=== PATIENT | female | born 1935 | race Caucasian/White ===

== ENCOUNTER → 2017-01-05 | Outpatient (CLI) | payer OTHER, MEDICARE | LOC: BMCIMAGING 09:07 | DX: Z12.31 Encounter for screening mammogram for malignant neoplasm of breast (principal) | CPT/HCPCS: G0202 ==

== ENCOUNTER 2017-01-09 07:15 | Inpatient (IN) | payer OTHER, MEDICARE ==
[2017-01-12] MEDS ORDERED: LIDOCAINE 1% 2 ML INJ ONE (06:26)
[2017-01-12] MEDS ORDERED: CHLORHEXIDINE GLUC HIBICLENS 118 ML BTL TP ONE (06:30)
[2017-01-12] MEDS ORDERED: ROPI/epiNEPH/KETOROLAC JOINT COCKTAIL IU ONE (06:30)
[2017-01-12] MEDS ORDERED: DEXAMETHASONE 4 MG/ML VIAL IVP ONE (06:30)
[2017-01-12] MEDS ORDERED: FAMOTIDINE 20 MG TAB PO ONE (06:30)
[2017-01-12] MEDS ORDERED: ACETAMINOPHEN 325 MG TAB PO ONE (06:30)
[2017-01-12] MEDS ORDERED: CEFAZOLIN 2 GM/DEXTR 100 ML IV ONE (06:30)
[2017-01-12] MEDS ORDERED: SKIN ADHESIVE (DERMABOND) 1 EACH TP ONE (06:35)
[2017-01-12] MEDS ORDERED: ceFAZolin 1 GM/5 ML SYR ONE (06:35)
[2017-01-12] MEDS ORDERED: LIDOCAINE 1% 5 ML SDV ID PRN (06:47)
[2017-01-12] MEDS ORDERED: LR 1,000 ML IV ONE (06:47)
[2017-01-12] MEDS ORDERED: THROMBIN (RECOMBINANT) 5,000 UNIT VIAL TP ONE (07:03)
[2017-01-12] MEDS ORDERED: CALCIUM CHLORIDE 1 GM/10 ML INJ ONE (07:04)
[2017-01-12] MEDS ORDERED: PROPOFOL/EMULSION 500 MG/50 ML BOTTLE IV ONE ×2 (07:18→08:17)
[2017-01-12] MEDS ORDERED: clonIDINE 1 MG/10 ML VIAL EP ONE (07:54)
[2017-01-12] MEDS ORDERED: ROPIVACAINE HCL 150 MG/30 ML INJ ONE (07:55)
[2017-01-12] MEDS ORDERED: FAMOTIDINE 20 MG TAB PO PRN (09:56)
[2017-01-12] MEDS ORDERED: MAGNESIUM HYDROXIDE 30 ML UDCUP PO PRN (09:56)
[2017-01-12] MEDS ORDERED: POLYETHYLENE GLYCOL 3350 17 GM PKT PO PRN (09:56)
[2017-01-12] MEDS ORDERED: diphenhydrAMINE 25 MG CAP PO PRN (09:56)
[2017-01-12] MEDS ORDERED: PHARMACY PAIN CONSULT 1 EA MISC PRN (09:56)
[2017-01-12] MEDS ORDERED: ONDANSETRON DISINTEGRATING 4 MG TAB PO PRN (09:56)
[2017-01-12] MEDS ORDERED: LACTULOSE 20 GM/30 ML UDCUP PO PRN (09:56)
[2017-01-12] MEDS ORDERED: PROMETHAZINE HCL 25 MG SUPPR PR PRN (09:56)
[2017-01-12] MEDS ORDERED: oxyCODONE IR 5 MG TAB PO PRN (09:56)
[2017-01-12] MEDS ORDERED: DIPHENOXYLATE/ATROPINE LOMOTIL 1 TAB PO PRN (09:56)
[2017-01-12] MEDS ORDERED: METOCLOPRAMIDE 10 MG/2 ML VIAL IVP PRN (09:56)
[2017-01-12] MEDS ORDERED: ONDANSETRON 4 MG/2 ML VIAL IVP PRN (09:56)
[2017-01-12] MEDS ORDERED: BISACODYL 10 MG SUPP PR PRN (09:56)
[2017-01-12] MEDS ORDERED: LR 1,000 ML IV SCH (10:00)
--- NOTE | 2017-01-12 10:03 | POSTOPPROG ---
Post Op Note Date of Operation: 01/12/17 Surgeon: Guerline Gee Natural Developer: Shaniqua Hernandez PA-C Anesthesiologist: Dr. Zelaya Anesthesia: Spinal Pre-op Diagnosis: left knee osteoarthritis Post-op Diagnosis: left knee osteoarthritis Indication: severe arthritis, pain Procedure: left TKA Inf/Abcess present in the surg proc area at time of surgery?: No EBL: 50-100 Complications: none
--- NOTE | 2017-01-12 10:05 | SOAPPROG ---
SOAP Progress Note Assessment/Plan: Assessment/Plan: 81y/o female s/p left TKA - stable and doing well - meds as ordered - start Eloquis tomorrow - PT/OT - post-op antibiotics as ordered - xrays pending - call with issues or concerns 01/12/17 10:03 Subjective: No pain, feeling well Objective: NAD, no distress EOMi, face symmetric alert, appropriate MAEx4 incision clean, dressed ICD10 Worksheet Patient Problems: Problems Problem Status Onset Chronic Disease Mgmt/Transitional Care Acute Afib Acute CAD (coronary artery disease) Acute CHF (congestive heart failure) Acute
[2017-01-12] MEDS ORDERED: fentaNYL 100 MCG/2 ML INJ ONE (10:28)
[2017-01-12] MEDS: ACETAMINOPHEN 325 MG TAB PO SCH ×2 (11:28→17:55)
[2017-01-12] MEDS: ceFAZolin 2 GM/DEXTROSE 100 ML IV SCH ×2 (14:22→21:28)
--- NOTE | 2017-01-12 17:15 | GOP ---
[f rep st] OPERATIVE REPORT DATE OF OPERATION: 01/12/2017 SURGEON: Guerline Gee MD SENIOR ENLISTED ADVISOR: Shaniqua Hernandez, PAC. ANESTHESIA: Spinal with sedation and adductor canal block. PREOPERATIVE DIAGNOSIS: Severe osteoarthritis, left knee. POSTOPERATIVE DIAGNOSIS: Severe osteoarthritis, left knee. PROCEDURE PERFORMED: Left total knee arthroplasty. FINDINGS: Preoperative x-rays of the patient's left knee demonstrated severe osteoarthritis. At th e time of surgery, this finding was confirmed. The patient had complete loss of the articular carti malina in the medial and patellofemoral compartments. There was moderate loss in the lateral compartm ent. A cemented Colin and Nephew Journey II total knee arthroplasty was performed. A size 5 crucia te stabilized Oxinium-coated Journey II component was cemented into place on the femur and a size 4 tibial base plate was used on the tibial side. A 12 mm thick cross-linked polyethylene insert was p laced in the metal backing of the tibia. A 38 mm round patellar component was utilized as well. Th is was also cemented. Following implantation of the components, the patient achieved full extension and 130 degrees of flexion. She had good stability in varus and valgus stressing both in extension and flexion. ESTIMATED BLOOD LOSS: Minimal. DESCRIPTION OF PROCEDURE: The patient was taken to the operating room and placed in supine position on the operating table. Following placement of a spinal block and sedation, the knee and leg were prepped and draped in the usual sterile manner. The patient received 2 g of IV Ancef. The leg was elevated and exsanguinated and the tourniquet inflated to 275 mmHg. A midline incision was made ext ending from 2 fingerbreadths above the superior pole of the patella distally to the tibial tubercle. Incision was carried down through the subcutaneous tissue to the retinaculum of the knee. A media l parapatellar arthrotomy was performed and the patella was everted laterally. The thickness of the patella was measured and then a 9 mm cut was taken from the patella. The cut surface was protected with a metal plate and the patella was placed in the lateral gutter. The distal femoral drill was then utilized and the intramedullary guide was inserted in the distal femur with the distal femoral cutting guide. This was positioned and pinned and then a +2 cut was taken from the distal femur. Next, the femur was sized and a size 5 cutting block was chosen. It was placed on the distal femur and the anterior, posterior, and chamfer cuts were made. The 5 trial was placed on the distal femur and an excellent fit was noted. The notch was then cleared with the reamer followed by the box ost eotome. The trial component was removed and our attention was turned to the tibia. The tibia was r etracted anteriorly and again intramedullary referencing was utilized. A drill hole was placed in t he area of the tibial spines and then the intramedullary guide was inserted and the tibial cutting j ig was positioned and pinned. The tibial cut was made. The tibia was sized and the size 4 componen t was pinned into place. A trial reduction was performed and a good fit was noted with both the 11 and 12 mm thick polyethylenes. The patella was also prepared. It was drilled and a trial reduction was performed. All the trial components were then removed and the bony surfaces were thoroughly ir rigated and dried and the cement was mixed. The tibial component was then cemented into place, foll owed by the femoral component and the patellar component. The pressure was held on the components w hile the cement hardened. All excess cement was removed from around the edges of the components. T he knee was thoroughly irrigated and then the trial polyethylene was removed and the posterior capsu le was injected with joint cocktail. The 12 mm thick polyethylene was opened and inserted. Again, the wound was irrigated and then the retinaculum of the knee was closed using #2 FiberWire in a figu re-of-eight fashion. The subcutaneous tissues were closed using 2-0 Vicryl and the skin was closed using primo. Platelet gel was used in the deep and superficial portions of the wound to enhance w ound healing. The remainder of the joint cocktail was injected into the extensor mechanism. Steril e dressings and an Tank wrap were applied. The patient tolerated the procedure well and there were n o complications. Estimated blood loss minimal. Final sponge and needle counts were correct. Vincent horn was transported to the recovery room in good condition. /[id number]/MODL
[2017-01-12] MEDS ORDERED: NON-FORMULARY NEW DRUG (Lansoprazole [Lansoprazole 15 Mg] 15 MG) PO SCH (21:00)
[2017-01-12] MEDS: DILTIAZEM CD 120 MG CAP PO SCH (21:25)
[2017-01-12] MEDS: PANTOPRAZOLE SODIUM 40 MG TAB PO SCH (21:26)
[2017-01-12] MEDS: DOCUSATE SODIUM 100 MG CAP PO SCH (21:26)
[2017-01-12] MEDS: ROSUVASTATIN CALCIUM 10 MG TAB PO SCH (21:26)
[2017-01-12] MEDS: SENNOSIDES/DOCUSATE SODIUM TAB PO SCH (21:27)
[2017-01-12] MEDS: OLMESARTAN MEDOXOMIL 20 MG TAB PO SCH (21:38)
[2017-01-13] MEDS: ACETAMINOPHEN 325 MG TAB PO SCH ×4 (01:15→17:46)
[2017-01-13 05:25] LABS: HEMATOCRIT 31.5 % (38.0-47.0); HEMOGLOBIN 10.7 g/dL (12.6-16.3)
[2017-01-13] MEDS: CALCIUM CARB W/VIT D 500 MG TAB PO SCH (08:30)
[2017-01-13] MEDS: APIXABAN 5 MG TAB PO SCH ×2 (08:30→21:56)
[2017-01-13] MEDS: CYANO/VITAMIN B12 1000 MCG TAB PO SCH (08:31)
[2017-01-13] MEDS: DILTIAZEM CD 120 MG CAP PO SCH ×2 (08:31→21:56)
[2017-01-13] MEDS: SENNOSIDES/DOCUSATE SODIUM TAB PO SCH ×2 (08:32→21:53)
[2017-01-13] MEDS ORDERED: NON-FORMULARY NEW DRUG (Olmesartan Medoxomil [Benicar] 40 MG) PO SCH (09:00)
[2017-01-13] MEDS ORDERED: CALCIUM CARB W/VIT D 500 MG TAB PO SCH (09:00)
[2017-01-13] MEDS: CYCLOBENZAPRINE 10 MG TAB PO PRN ×2 (13:15→21:54)
--- NOTE | 2017-01-13 15:11 | SOAPPROG ---
SOAP Progress Note Assessment/Plan: Assessment/Plan: 81y/o female 1 day s/p left TKA - stable and doing well - requiring very little pain medication - started Eloquis today, no need to go home with Active Care system; continue SCDs while inpatient, use BALWINDER hose at home - PT/OT - xrays show stable hardware - call with issues or concerns - plan for home tomorrow morning - return precautions discussed, patient has follow-up scheduled discussed w/Dr. Gee 01/13/17 15:03 01/13/17 15:12 Subjective: Feeling well. Minimal pain. Working with PT/OT and doing well Objective: Vital Signs Temp Pulse Resp BP Pulse Ox 36.7 C 91 18 111/68 90 L 01/13/17 11:47 01/13/17 11:47 01/13/17 11:47 01/13/17 11:47 01/13/17 11:47 Laboratory Results 01/13/17 04:59 01/12/17 01/13/17 01/14/17 05:59 05:59 05:59 Intake Total 2600 Output Total 2250 Balance 350 NAD, well appearing, no distress EOMi, face symmetric, MAEx4 left knee extension 0, flexion 90 incision CDI, no erythema or active drainage ICD10 Worksheet Patient Problems: Problems Problem Status Onset Afib Acute CAD (coronary artery disease) Acute CHF (congestive heart failure) Acute Chronic Disease Mgmt/Transitional Care Acute
--- NOTE | 2017-01-13 15:22 | PDIAF ---
- Diagnosis Diagnosis: left knee osteoarthritis Code Status: Full Code - Medication Management Discharge Medications: Medications to Continue on Transfer Calcium Carbonate/Vitamin D3 [Calcium 500-Vit D3 400 Tablet] 1 each PO DAILY [Last Taken 01/05/17] Cyanocobalamin [Vitamin B12 (*)] 1,000 mcg PO DAILY 10/27/14 [Last Taken ] Docusate Sodium [Colace 100 MG (*)] 100 mg PO HS 10/27/14 [Last Taken 01/05/17] Herbals/Supplements -Info Only 1 ea PO DAILY 10/27/14 [Last Taken 01/05/17] Lansoprazole [Lansoprazole 15 mg] 15 mg PO HS 10/27/14 [Last Taken 01/11/17] Rosuvastatin Calcium [Crestor] 10 mg PO HS 10/27/14 [Last Taken 01/11/17] Apixaban [Eliquis] 5 mg PO BID #60 tab 10/29/14 [Last Taken 01/09/17] Olmesartan Medoxomil [Benicar] 40 mg PO HS 12/08/16 [Last Taken 01/10/17] Diltiazem HCl [Cartia Xt] 120 mg PO BID 12/09/16 [Last Taken 01/12/17 05:15] Acetaminophen [Tylenol 325mg (*)] 650 mg PO Q6HRS #0 tab 01/13/17 [Last Taken Unknown] oxyCODONE IR [Oxycodone Ir (*)] 5 - 10 mg PO Q3HRS PRN #0 tab 01/13/17 [Last Taken Unknown] 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 - Orders Services needed: Home Care, Registered Nurse, Physical Therapy, Occupational Therapy Home Care Face to Face: I certify that this patient was under my care and that I had the required poal-ew-olcy encounter meeting the encounter requirements on the discharge day. My findings support the fact that the patient is homebound as defined in CMS Chapter 7 Medicare Benefits Manual 30.1.1, The condition of the patient is such that there exists a normal inability to leave home and consequently, leaving home would require a considerable and taxing effort. Oxygen: n/a Diet Recommendation: no restrictions on diet Diet Texture: Regular Texture Diet Narayan Stockings Discontinue Date: continue until further discussion at post-op visit 2 weeks from surgery Wound Care Instructions: keep incision clean and dry Sutures/Primo Site: primo to be removed at post-operative visit Activity/Weight Bearing Restrictions: weight bearing as tolerated with walker - Follow Up Care Current Providers and Referrals: Angeles Nichols MD [Primary Care Provider] -
[2017-01-13] MEDS: DOCUSATE SODIUM 100 MG CAP PO SCH (21:53)
[2017-01-13] MEDS: ROSUVASTATIN CALCIUM 10 MG TAB PO SCH (21:53)
[2017-01-13] MEDS: PANTOPRAZOLE SODIUM 40 MG TAB PO SCH (21:53)
[2017-01-13] MEDS: OLMESARTAN MEDOXOMIL 20 MG TAB PO SCH (22:44)
[2017-01-14 00:17] VITALS: TEMP 98.4; O2SAT 93
[2017-01-14] MEDS: ACETAMINOPHEN 325 MG TAB PO SCH ×2 (01:43→08:15)
[2017-01-14 05:14] LABS: HEMATOCRIT 27.5 % (38.0-47.0); HEMOGLOBIN 9.4 g/dL (12.6-16.3)
[2017-01-14 08:11] VITALS: BP 124/97; PULSE 80; RESP 18
[2017-01-14] MEDS: SENNOSIDES/DOCUSATE SODIUM TAB PO SCH (08:13)
[2017-01-14] MEDS: DILTIAZEM CD 120 MG CAP PO SCH (08:14)
[2017-01-14] MEDS: APIXABAN 5 MG TAB PO SCH (08:15)
[2017-01-14] MEDS: CALCIUM CARB W/VIT D 500 MG TAB PO SCH (08:16)
[2017-01-14] MEDS: CYANO/VITAMIN B12 1000 MCG TAB PO SCH (08:16)
--- NOTE | 2017-01-19 11:53 | GDS ---
[f rep st] DISCHARGE SUMMARY ADMISSION DIAGNOSIS: Knee osteoarthritis. DISCHARGE DIAGNOSIS: Knee osteoarthritis. HOSPITAL COURSE: The patient is an 81-year-old female who is well-known to our service for ongoing knee pain and severe osteoarthritis. After careful decision making and discussion, she elected to proceed forth with surgical interventio n in the way of a left total knee arthroplasty. Surgery was completed by Dr. Guerline Gee on January 12, 2017. The patient tolerated well without complication, and was transferred to the floor, and PACU criteria was met. She worked with Physical Therapy and Occupational Therapy and continued to make great progress. Her pain was well managed. She had normal return of bladder function. She was ambulating with a walke r and doing well. Her home Eliquis was restarted the day after surgery and typical postoperative pr otocols were taken. On January 14, 2017, she was in good and stable condition and ready for discharge home with home healt marilu. All of her questions were answered prior to discharge. FOLLOWUP: She was given strict instructions to follow up in 2 weeks or sooner with any issues or ch anges. /[id number]/MODL
== END 2017-01-14 10:07 | disposition home health service (06) | DRG 470 ==
LOC: F3N 01-12 05:54
PROVIDERS: ADMIT Orthopaedic Surgery; ATTEND Orthopaedic Surgery
PROC: 0SRD0J9 Replacement of Left Knee Joint with Synthetic Substitute, Cemented, Open Approach (ICD-10-PCS; principal; 2017-01-12 07:15)
DX: M17.12 Unilateral primary osteoarthritis, left knee (principal); I25.10 Atherosclerotic heart disease of native coronary artery without angina pectoris; I10 Essential (primary) hypertension; E78.5 Hyperlipidemia, unspecified; I48.91 Unspecified atrial fibrillation; Z79.01 Long term (current) use of anticoagulants
CPT/HCPCS: 97110-GP; 97116-GP; 97161-GP; 97165-GO; 97535-GO; C1713; G8978-GP-CJ; G8979-GP-CI; G8984-GO-CJ; G8985-GO-CI; G8987-GO-CJ; G8988-GO-CI; G8989-GO-CI; J0171; J0690; J0735; J1100; J1885; J2405; J2704; J2795; J3010

== ENCOUNTER 2017-02-28 14:26 | Observation (INO) | payer OTHER, MEDICARE ==
--- NOTE | 2017-02-28 14:46 | EDPHY ---
H & P Stated Complaint: hx afib/dizzy Time Seen by Provider: 02/28/17 14:46 - Personal History Current Tetanus/Diphtheria Vaccine: Yes Tetanus Vaccine Date: withn 5-10 years - Medical/Surgical History Hx Asthma: No Hx Chronic Respiratory Disease: No Hx Diabetes: No Hx Cardiac Disease: Yes Hx Renal Disease: No Hx Cirrhosis: No Hx Alcoholism: No Hx HIV/AIDS: No Hx Splenectomy or Spleen Trauma: No Other PMH: CAD, STENTS, AFIB. SURGERY BILATERAL HIP REPLACEMENT, RIGHT KNEE RELPLACEMENT, HTN, high cholesterol - Social History Smoking Status: Never smoked Constitutional: Initial Vital Signs Temperature (C) 36.3 C 02/28/17 14:34 Heart Rate 93 02/28/17 14:34 Respiratory Rate 20 02/28/17 14:34 Blood Pressure 169/104 H 02/28/17 14:34 O2 Sat (%) 93 02/28/17 14:34 O2 Delivery Mode Room Air O2 (L/minute) 2 Allergies/Adverse Reactions: Penicillins Allergy (Mild, Verified 02/28/17 14:31) Hives amiodarone Allergy (Verified 02/28/17 14:31) flecainide Allergy (Verified 02/28/17 14:31) propafenone HCl [From Rythmol] Allergy (Verified 02/28/17 14:31) Home Medications: Medication Instructions Recorded Calcium Carbonate/Vitamin D3 1 each PO DAILY 10/27/14 [Calcium 500-Vit D3 400 Tablet] Cyanocobalamin [Vitamin B12 (*)] 1,000 mcg PO DAILY 10/27/14 Docusate Sodium [Colace 100 MG (*)] 100 mg PO HS 10/27/14 Herbals/Supplements -Info Only 1 ea PO DAILY 10/27/14 Lansoprazole [Lansoprazole 15 mg] 15 mg PO HS 10/27/14 Rosuvastatin Calcium [Crestor] 10 mg PO HS 10/27/14 Apixaban [Eliquis] 5 mg PO BID #60 tab 10/29/14 Olmesartan Medoxomil [Benicar] 40 mg PO HS 12/08/16 Diltiazem HCl [Cartia Xt] 120 mg PO BID 12/09/16 Acetaminophen [Tylenol 325mg (*)] 650 mg PO Q6HRS #0 tab 01/13/17 oxyCODONE IR [Oxycodone Ir (*)] 5 - 10 mg PO Q3HRS PRN #0 tab 01/13/17 Medical Decision Making - Diagnostics Imaging: Discussed imaging studies w/ house calls nurse Radiologist ED Course/Re-evaluation: CHIEF COMPLAINT: Dizziness, atrial fibrillation. HISTORY OF PRESENT ILLNESS: The patient is an 81-year-old female with a history of atrial fibrillation who presents with dizziness that began yesterday and has been constant since then. The dizziness is worsened with walking. She is not dizzy when she lies in bed. She was seen at Urgent Care just prior to arrival for dizziness and was sent here when she was found to be in atrial fibrillation. She is anticoagulated on Eliquis. REVIEW OF SYSTEMS: A 10 point review of systems was performed and is negative with the exception of the elements mentioned in the history of present illness. PHYSICAL EXAM: HR, BP, O2 Sat, RR. Temp noted General Appearance: Alert, well hydrated, appropriate, and non-toxic appearing. Head: Atraumatic without scalp tenderness or obvious injury Eyes: Pupils equal, round, reactive to light and accommodation, EOMI, no trauma , no injection. Ears: Clear bilaterally, no perforation, normal landmarks Nose: Atraumatic, no rhinorrhea, clear. Throat: There is no erythema or exudates, no lesions, normal tonsils, mucus membranes moist. Neck: Supple, 2+ carotid upstroke, nontender, no lymphadenopathy. Respiratory: No retractions, no distress, no wheezes, and no accessory muscle use. Lungs are clear to auscultation bilaterally. Cardiovascular: Regular rate and rhythm, no murmurs, rubs, or gallops. Bilateral carotid, radial, dorsalis pedis, and posterior tibial pulses intact. Good capillary refill all extremities. Gastrointestinal: Abdomen is soft, nontender, non-distended, no masses, no rebound, no guarding, no peritoneal signs. Musculoskeletal: Normal active ROM of all extremities, atraumatic. Neurological: Alert, appropriate, and interactive. The patient has normal DTRs and non-focal cranial nerves, motor, sensory, and cerebellar exam. Skin: No rashes, good turgor, no nodules on palpation. Past medical history: HTN, hypercholesterolemia, atrial fibrillation. Past surgical history: Knee replacement. Family history: N/A. Social history: Here with family. DIAGNOSTICS/PROCEDURES/CRITICAL CARE TIME: Study: MRI of the: Brain. Indication: Neurologic Results: See Imaging Results section for official report. The study was read by the radiologist, Dr. Maher. I viewed the images myself on the PACS system. The 12 lead EKG was interpreted by myself. See hard copy and/or "tracemaster" electronic copy for interpretation. Rate-controlled Atrial fibrillation rate 98. DIFFERENTIAL DIAGNOSIS: The differential diagnosis for the patient's dizziness included but was not limited to peripheral and central causes of vertigo, orthostatic causes including dehydration, cardiogenic and neurogenic causes, and blood loss. MEDICAL DECISION MAKIN-year-old male with a history of atrial fibrillation presents with dizziness that began yesterday. I was notified of this patient prior to arrival by the provider at [facility]. I think benign peripheral vertigo less likely as she is not dizzy when she is in bed and moves her head around. She is only dizzy when she walks and considering her risk of blood clot with the afib I am concerned for a cerebellar process. Even with anticoagulation her risk of stroke is non-zero. We will check a brain MRI. I will give her 1mg IV Ativan as she is claustrophobic and afraid of the MRI. An IV was established and labs ordered. Lab work is unremarkable. 1909: Brain MRI results conveyed to me by Dr. Maher, radiology. He reports no acute processes. See image results section for official report. 1912: Reassessed patient. Discussed MRI results. She feels well. We will road test her prior to discharge. 1918: Patient is wobbly and ataxic while walking. She is comfortable being admitted. Hospitalist paged. 1921: Consulted with Dr. Boyle, hospitalist. He accepts admission. - Data Points Laboratory Results: Laboratory Results 02/28/17 15:06 02/28/17 15:06 02/28/17 02/28/17 15:06 15:06 WBC 5.88 10^3/uL 10^3/uL (3.80-9.50) RBC 4.10 10^6/uL L 10^6/uL (4.18-5.33) Hgb 13.0 g/dL g/dL (12.6-16.3) Hct 39.1 % % (38.0-47.0) MCV 95.4 fL fL (81.5-99.8) MCH 31.7 pg pg (27.9-34.1) MCHC 33.2 g/dL g/dL (32.4-36.7) RDW 14.9 % % (11.5-15.2) Plt Count 301 10^3/uL 10^3/uL (150-400) MPV 8.9 fL fL (8.7-11.7) Neut % (Auto) 70.4 % % (39.3-74.2) Lymph % (Auto) 17.5 % % (15.0-45.0) Bowie % (Auto) 10.4 % % (4.5-13.0) Eos % (Auto) 0.5 % L % (0.6-7.6) Baso % (Auto) 0.9 % % (0.3-1.7) Nucleat RBC Rel Count 0.0 % % (0.0-0.2) Absolute Neuts (auto) 4.14 10^3/uL 10^3/uL (1.70-6.50) Absolute Lymphs (auto) 1.03 10^3/uL 10^3/uL (1.00-3.00) Absolute Monos (auto) 0.61 10^3/uL 10^3/uL (0.30-0.80) Absolute Eos (auto) 0.03 10^3/uL 10^3/uL (0.03-0.40) Absolute Basos (auto) 0.05 10^3/uL 10^3/uL (0.02-0.10) Absolute Nucleated RBC 0.00 10^3/uL 10^3/uL (0-0.01) Immature Gran % 0.3 % % (0.0-1.1) Immature Gran # 0.02 10^3/uL 10^3/uL (0.00-0.10) Sodium 140 mEq/L mEq/L (134-144) Potassium 4.2 mEq/L mEq/L (3.5-5.2) Chloride 105 mEq/L mEq/L (97-110) Carbon Dioxide 23 mEq/l mEq/l (22-31) Anion Gap 12 mEq/L mEq/L (8-16) BUN 18 mg/dL mg/dL (7-23) Creatinine 0.8 mg/dL mg/dL (0.6-1.0) Estimated GFR > 60 Glucose 97 mg/dL mg/dL (70-100) Calcium 9.9 mg/dL mg/dL (8.5-10.4) Magnesium 2.4 mg/dL H mg/dL (1.6-2.3) Troponin I < 0.012 ng/mL ng/mL (0-0.034) NT-Pro-B Natriuret Pep 795 pg/mL H pg/mL (0-450) Medications Given: Discontinued Medications Lorazepam (Ativan Injection) 1 mg IVP EDNOW ONE Stop: 02/28/17 15:02 Last Admin: 02/28/17 17:30 Dose: 1 mg Departure - Departure Disposition: [facility] Inpatient Acute Clinical Impression: Benign positional vertigo Qualifiers: Laterality: unspecified laterality Qualified Code(s): H81.10 - Benign paroxysmal vertigo, unspecified ear Condition: Fair Referrals: Angeles Nichols MD [Primary Care Provider] - As per Instructions Deshaun Roque MD [Medical Doctor] - As per Instructions Report Scribed for: Garrick Land Report Scribed by: Carmine Arciniega Date of Report: 02/28/17 Time of Report: 14:58
--- NOTE | 2017-02-28 14:56 | CPEKG ---
Heart Rate: 98 RR Interval: 612 QRSD Interval: 88 QT Interval: 364 QTC Interval: 465 QRS [place]: -40 T Wave [place]: 100 EKG Severity - ABNORMAL ECG - EKG Impression: ATRIAL FIBRILLATION EKG Impression: LEFT AXIS DEVIATION EKG Impression: NONSPECIFIC T ABNORMALITIES, LATERAL LEADS Electronically Signed By: Garrick Land 28-Feb-2017 21:07:19
[2017-02-28] MEDS ORDERED: LORazepam 2 MG/ML INJ IVP ONE (15:01)
[2017-02-28 15:20] LABS: % IMMATURE GRANULYOCYTES 0.3 % (0.0-1.1); ABSOLUTE IMMATURE GRANULOCYTES 0.02 10^3/uL (0.00-0.10); ADD DIFF? NO; ADD MORPH? NO; ADD SCAN? NO; ATYPICAL LYMPHOCYTE FLAG 0 (0-99); FRAGMENT RBC FLAG 0 (0-99); HEMATOCRIT 39.1 % (38.0-47.0); LEFT SHIFT FLG 0 (0-99); LIPEMIA HEMOLYSIS FLAG 80 (0-99); MEAN CELL HEMOGLOBIN 31.7 pg (27.9-34.1); MEAN CELL HEMOGLOBIN CONCENTR. 33.2 g/dL (32.4-36.7); MEAN CELL VOLUME 95.4 fL (81.5-99.8); MEAN PLATELET VOLUME 8.9 fL (8.7-11.7); PLATELET CLUMPS FLAG 0 (0-99); PLATELET COUNT 301 10^3/uL (150-400); RED CELL DISTRIBUTION WIDTH 14.9 % (11.5-15.2)
[2017-02-28 15:52] LABS: ANION GAP 12 mEq/L (8-16); CALCIUM 9.9 mg/dL (8.5-10.4); CARBON DIOXIDE 23 mEq/l (22-31); CHLORIDE 105 mEq/L (97-110); CREATININE 0.8 mg/dL (0.6-1.0); GLOMERULAR FILTRATION RATE > 60; GLUCOSE 97 mg/dL (70-100); MAGNESIUM 2.4 mg/dL (1.6-2.3); POTASSIUM 4.2 mEq/L (3.5-5.2); SODIUM 140 mEq/L (134-144)
[2017-02-28 16:02] LABS: TROPONIN I < 0.012 ng/mL (0-0.034)
[2017-02-28] MEDS ORDERED: LORazepam 2 MG/ML INJ ONE (17:39)
[2017-02-28] MEDS ORDERED: MECLIZINE HCL 25 MG TAB PO ONE (19:22)
[2017-02-28] MEDS ORDERED: ONDANSETRON 4 MG/2 ML VIAL IVP PRN (22:49)
[2017-02-28] MEDS ORDERED: ONDANSETRON DISINTEGRATING 4 MG TAB PO PRN (22:49)
[2017-02-28] MEDS ORDERED: ACETAMINOPHEN 325 MG TAB PO PRN (22:49)
[2017-02-28] MEDS ORDERED: MECLIZINE HCL 25 MG TAB PO PRN (22:52)
--- NOTE | 2017-02-28 23:35 | PDGENHP ---
History and Physical - Chief Complaint dizziness - History of Present Illness Patient is an 81 year old female with atrial fibrillation, on eliquis, hypertension, CAD and osteoarthritis who presents to the ED with complaint of dizziness. Patient reports her symptoms started yesterday morning, were initially mild and she was able to complete her scheduled tasks for the day. However, when she came home, she significantly fatigued and her dizziness had intensified to where she felt the room was spinning around her. She denies any associated headache, focal weakness, chest pain or palpitations. When she awoke this morning her symptoms were still present, occurred both with movement and also when lying in bed, so she decided to go the [facility] for further evaluation. She denies any recent fevers, chills, headache, cp, palpitations, nausea, vomiting or diarrhea. She did have L total knee replacement about 1 month ago, has been recovering well and participating in PT. Of note, patient does report an episode of vertigo about 11 years ago where she had experienced symptoms very similar to her current symptoms. She states symptoms improved after the eply maneuver and meclizine. On arrival to the [facility] ED, patient was afebrile, hemodynamically stable. EKG revealed patient was in rate controlled afib, labs were unremarkable. Given persistence of symptoms, she was transferred to the [facility] ED for further evaluation. MRI brain was obtained and, official read pending, prelim read did not show any obvious acute intracranial abnormality. She was then given meclizine for her symptoms and admitted to the hospitalist service for further management. History Information - Allergies/Home Medication List Allergies/Adverse Reactions: Penicillins Allergy (Mild, Verified 02/28/17 14:31) Hives amiodarone Allergy (Verified 02/28/17 14:31) flecainide Allergy (Verified 02/28/17 14:31) propafenone HCl [From Rythmol] Allergy (Verified 02/28/17 14:31) Home Medications: Acetaminophen [Tylenol ES 500 mg (*)] 500 - 1,000 mg PO DAILY PRN 02/28/17 [ Last Taken Unknown] Apixaban [Eliquis] 5 mg PO BID 02/28/17 [Last Taken 02/28/17] Calcium Carbonate/Vitamin D3 [CALCIUM 600 + VIT D TABLET] 1 each PO DAILY [Last Taken 02/28/17] Cyanocobalamin [Vitamin B12 (*)] 1,000 mcg PO DAILY 02/28/17 [Last Taken ] Diltiazem HCl [Cartia Xt] 120 mg PO BID 02/28/17 [Last Taken 02/28/17] Docusate Sodium [Colace 100 MG (*)] 100 mg PO HS 02/28/17 [Last Taken 02/28/17] Lansoprazole [Lansoprazole 15 mg] 15 mg PO HS 02/28/17 [Last Taken 02/28/17] Olmesartan Medoxomil [Benicar] 40 mg PO HS 02/28/17 [Last Taken 02/28/17] Rosuvastatin Calcium [Crestor 10mg (RX)] 10 mg PO DAILY 02/28/17 [Last Taken 12/16] I have personally reviewed and updated: family history, medical history, social history, surgical history - Past Medical History Additional medical history: hypertension. afib on eliquis. CAD with previous PCI. osteoarthritis - Surgical History Additional surgical history: bilateral knee replacements, L knee 12/2016. bilateral hip replacements - Social History Smoking Status: Never smoked Alcohol Use: None Drug Use: None Additional social history: Patient lives alone, is independent in ADLs, walks with cane Review of Systems ROS: 10pt was reviewed & negative except for what was stated in HPI & below Physical Exam Temp Pulse Resp BP Pulse Ox 36.4 C 79 18 143/96 H 92 02/28/17 21:03 02/28/17 21:03 02/28/17 21:03 02/28/17 21:03 02/28/17 21:03 Constitutional: no apparent distress, appears nourished, not in pain Eyes: PERRL, anicteric sclera, EOMI, other (no nystagmus) Ears, Nose, Mouth, Throat: moist mucous membranes, hearing normal, ears appear normal, no oral mucosal ulcers Cardiovascular: no murmur, rub, or gallop, irregularly irregular, pulses symmetric bilaterally, No JVD, No edema Peripheral Pulses: 2+: dorsalis-pedis (R), dorsalis-pedis (L) Respiratory: no respiratory distress, no rales or rhonchi, clear to auscultation Gastrointestinal: normoactive bowel sounds, soft, non-tender abdomen, no palpable masses Genitourinary: no bladder fullness, no bladder tenderness Skin: warm, normal color, no rashes or abrasions, no fluctuance, no induration, No mottled Musculoskeletal: full muscle strength, no muscle tenderness, normal joint ROM, no joint effusions Neurologic: AAOx3, sensation intact bilaterally, CN II-XII Intact, No weakness, No numbness, No facial droop Psychiatric: interacting appropriately, not anxious, not encephalopathic, thought process linear Lab Data & Imaging Review 02/28/17 15:06 02/28/17 15:06 WBC 5.88 10^3/uL (3.80-9.50) 02/28/17 15:06 RBC 4.10 10^6/uL (4.18-5.33) L 02/28/17 15:06 Hgb 13.0 g/dL (12.6-16.3) 02/28/17 15:06 Hct 39.1 % (38.0-47.0) 02/28/17 15:06 MCV 95.4 fL (81.5-99.8) 02/28/17 15:06 MCH 31.7 pg (27.9-34.1) 02/28/17 15:06 MCHC 33.2 g/dL (32.4-36.7) 02/28/17 15:06 RDW 14.9 % (11.5-15.2) 02/28/17 15:06 Plt Count 301 10^3/uL (150-400) 02/28/17 15:06 MPV 8.9 fL (8.7-11.7) 02/28/17 15:06 Neut % (Auto) 70.4 % (39.3-74.2) 02/28/17 15:06 Lymph % (Auto) 17.5 % (15.0-45.0) 02/28/17 15:06 Metcalfe % (Auto) 10.4 % (4.5-13.0) 02/28/17 15:06 Eos % (Auto) 0.5 % (0.6-7.6) L 02/28/17 15:06 Baso % (Auto) 0.9 % (0.3-1.7) 02/28/17 15:06 Nucleat RBC Rel Count 0.0 % (0.0-0.2) 02/28/17 15:06 Absolute Neuts (auto) 4.14 10^3/uL (1.70-6.50) 02/28/17 15:06 Absolute Lymphs (auto) 1.03 10^3/uL (1.00-3.00) 02/28/17 15:06 Absolute Monos (auto) 0.61 10^3/uL (0.30-0.80) 02/28/17 15:06 Absolute Eos (auto) 0.03 10^3/uL (0.03-0.40) 02/28/17 15:06 Absolute Basos (auto) 0.05 10^3/uL (0.02-0.10) 02/28/17 15:06 Absolute Nucleated RBC 0.00 10^3/uL (0-0.01) 02/28/17 15:06 Immature Gran % 0.3 % (0.0-1.1) 02/28/17 15:06 Immature Gran # 0.02 10^3/uL (0.00-0.10) 02/28/17 15:06 Sodium 140 mEq/L (134-144) 02/28/17 15:06 Potassium 4.2 mEq/L (3.5-5.2) 02/28/17 15:06 Chloride 105 mEq/L (97-110) 02/28/17 15:06 Carbon Dioxide 23 mEq/l (22-31) 02/28/17 15:06 Anion Gap 12 mEq/L (8-16) 02/28/17 15:06 BUN 18 mg/dL (7-23) 02/28/17 15:06 Creatinine 0.8 mg/dL (0.6-1.0) 02/28/17 15:06 Estimated GFR > 60 02/28/17 15:06 Glucose 97 mg/dL (70-100) 02/28/17 15:06 Calcium 9.9 mg/dL (8.5-10.4) 02/28/17 15:06 Magnesium 2.4 mg/dL (1.6-2.3) H 02/28/17 15:06 Troponin I < 0.012 ng/mL (0-0.034) 02/28/17 15:06 NT-Pro-B Natriuret Pep 795 pg/mL (0-450) H 02/28/17 15:06 Visualized and Interpreted imaging results: Yes Interpretation: MRI brain: prelim read no obvious acute intracranial abnormalities Visualized and Interpreted EKG results: Yes EKG additional interpertation: afib with rate at 98bpm, no obvious st/t wave abnormalities Assessment & Plan Assessment: Patient is an 81 year old female with atrial fibrillation, on eliquis, hypertension, CAD and osteoarthritis who presents to the ED with complaint of dizziness. ED work up reveals normal basic labs, negative troponin, EKG with rate controlled afib and MRI brain without obvious acute abnormality. Symptoms are likely the result of BPPV. Plan: # vertigo Patient's description of her symptoms, as well as unrevealing ED work up appears consistent with BPPV. Patient does report a previous episode of this about 10 years ago, also supporting this diagnosis. However, given her cardiac history, will also rule out cardiac etiology with monitoring of serial troponins , TSH, telemetry and EKGs. Will also check TTE to rule out significant structural abnormality. Will also f/u final MRI report, continue meclizine prn. # chronic afib VS have been stable since arrival, with HR and BP wnl. EKG shows afib without evidence of ischemia. Will continue her home rate controlling meds and eliquis for systemic anticoagulation. # hypertension Stable, cont home meds. # osteoarthritis, recent L total knee replacement Knee appears to be healing well, patient reports improving range of motion and minimal pain. Cont home meds. # dispo: admit to observation for above work up # gen: cardiac diet DVT ppx: on elquis Full code
[2017-03-01 04:22] VITALS: RESP 20
[2017-03-01] MEDS ORDERED: NON-FORMULARY NEW DRUG (Calcium Carbonate/Vitamin D3 [Calcium 600 + Vit D Tablet] 1 EACH) PO SCH (09:00)
[2017-03-01] MEDS ORDERED: CALCIUM CARB W/VIT D 500 MG TAB PO SCH (09:00)
[2017-03-01] MEDS ORDERED: ROSUVASTATIN CALCIUM 10 MG TAB PO SCH ×2 (09:00)
[2017-03-01] MEDS ORDERED: DILTIAZEM CD 120 MG CAP PO SCH (09:00)
[2017-03-01] MEDS ORDERED: CYANO/VITAMIN B12 1000 MCG TAB PO SCH (09:00)
[2017-03-01] MEDS ORDERED: APIXABAN 5 MG TAB PO SCH (09:00)
[2017-03-01 09:40] LABS: % IMMATURE GRANULYOCYTES 0.3 % (0.0-1.1); ABSOLUTE IMMATURE GRANULOCYTES 0.01 10^3/uL (0.00-0.10); ADD DIFF? NO; ADD MORPH? NO; ADD SCAN? NO; ATYPICAL LYMPHOCYTE FLAG 20 (0-99); FRAGMENT RBC FLAG 10 (0-99); HEMOGLOBIN 12.9 g/dL (12.6-16.3); LEFT SHIFT FLG 0 (0-99); LIPEMIA HEMOLYSIS FLAG 90 (0-99); MEAN CELL HEMOGLOBIN 32.2 pg (27.9-34.1); MEAN CELL HEMOGLOBIN CONCENTR. 33.9 g/dL (32.4-36.7); MEAN CELL VOLUME 94.8 fL (81.5-99.8); MEAN PLATELET VOLUME 8.8 fL (8.7-11.7); PLATELET CLUMPS FLAG 0 (0-99); PLATELET COUNT 352 10^3/uL (150-400); RED BLOOD CELL COUNT 4.01 10^6/uL (4.18-5.33)
--- NOTE | 2017-03-01 10:03 | CPEKG ---
Heart Rate: 89 RR Interval: 674 QRSD Interval: 86 QT Interval: 356 QTC Interval: 434 QRS [place]: -51 T Wave [place]: 110 EKG Severity - ABNORMAL ECG - EKG Impression: ATRIAL FIBRILLATION, V-RATE 70-114 EKG Impression: LEFT ANTERIOR FASCICULAR BLOCK EKG Impression: NONSPECIFIC T ABNORMALITIES, LATERAL LEADS Electronically Signed By: Dylan Tellez 02-Mar-2017 08:04:44
[2017-03-01 10:08] LABS: ANION GAP 9 mEq/L (8-16); CALCIUM 9.7 mg/dL (8.5-10.4); CARBON DIOXIDE 23 mEq/l (22-31); CHLORIDE 108 mEq/L (97-110); CREATININE 0.8 mg/dL (0.6-1.0); GLOMERULAR FILTRATION RATE > 60; GLUCOSE 95 mg/dL (70-100); MAGNESIUM 2.4 mg/dL (1.6-2.3); POTASSIUM 4.6 mEq/L (3.5-5.2); SODIUM 140 mEq/L (134-144)
[2017-03-01 10:19] LABS: TROPONIN I < 0.012 ng/mL (0-0.034)
[2017-03-01 13:01] VITALS: BP 109/73; PULSE 96; TEMP 98.7; O2SAT 95
--- NOTE | 2017-03-01 13:14 | ECHO ---
[id number] + + [id number] : : [place] [id number] : : [phone] + + Adult Echocardiographic Report + ---------+ :Name: ZUNILDA NICHOLAS PStudy Date: 03/01/2017 10:53 AM : : Hospital Admission Number: [id number] Cindy tran: 375: :: 1935 Gender: Female Height: 70 i n : :Age: 81 yrs Race: WH Weight: 185 lb : :Reason For Study: Dizziness/elevated BNP : : BSA: 2.0 met ers2 : :History: Afib : + ---------+ MMode/2D Measurements \T\ Calculations LVIDd: 4.4 cm EDV(Teich): Ao root diam: LVLd ap4: 6.4 cm 88.5 ml 3.5 cm EDV(MOD-sp4): LA dimension: 57.0 ml 4.2 cm LVLs ap4: 5.4 cm ESV(MOD-sp4): 19.0 ml EF(MOD-sp4): 66.7 % SV(MOD-sp4): 38.0 ml Normal Measurement Values: + + :LVIDd (3.5-5.7cm) IVSd (0.6-1.1cm) LVPWd (0.6-1.1cm) Aortic Root (2.0-3.7cm)Left Atrium (1.5-4.0cm): :LV Vol(d) (76-115ml) LV Vol(s) (29-48ml) Ejec Fraction (50-65%)PV Eliazar (0.6- 1.2m/s) TV Eliazar (0.4-1.0m/s) : :MV E Eliazar (0.8-1.0m/s)MV A Eliazar (0.3-1.0m/s)LVOT Eliazar (0.7-1.2m/s) Asc Ao Eliazar ( 0.9-1.8m/s) : + + Doppler Measurements \T\ Calculations MV E max eliazar: 83.4 cm/sec Ao mean P.7 mmHg Ao V2 mean: 76.8 cm/sec Ao V2 VTI: 17.3 cm Left Ventricle The left ventricle is normal in size. There is normal left ventricular wall thickness. Left ventricular systolic function is normal. Ejection Fraction = 65-70%. No regional wall motion abnormalities noted. Right Ventricle The right ventricle is normal in size and function. Atria The left atrium is mild to moderately dilated. The right atrium is mildly dilated. The interatrial septum is intact with no evidence for an atrial septal defect. Mitral Valve The mitral valve is normal in structure and function. There is no evidence of mitral valve prolapse. There is no mitral valve stenosis. There is mild mitral regurgitation. Tricuspid Valve Normal tricuspid valve. There is mild tricuspid regurgitation. Aortic Valve The aortic valve opens well. There is no aortic stenosis. There is no aortic insufficiency. Pulmonic Valve The pulmonic valve is not well visualized. There is no pulmonic valvular regurgitation. Great Vessels The aortic root is normal size. Pericardium/Pleural Trivial anterior pericardial effusion. Conclusion A complete two-dimensional transthoracic echocardiogram was performed (2D, M-mode, Doppler and color flow Doppler). Left ventricular systolic function is normal. Ejection Fraction = 65-70%. The left atrium is mild to moderately dilated. The right atrium is mildly dilated. There is mild mitral regurgitation. There is mild tricuspid regurgitation. Trivial anterior pericardial effusion Final Reading Physician: Meg Hayes signed on 03/01/2017 01:08 PM Ordering Physician: Luda Beyer Performed By: Lynn Kirkland, TIRSO
--- NOTE | 2017-03-01 14:29 | HOSPPROG ---
Hospitalist Progress Note Assessment/Plan: Patient is an 81 year old female with atrial fibrillation, on eliquis, hypertension, CAD and osteoarthritis who presents to the ED with complaint of dizziness # vertigo/BPPV MRI shows nothing acute/ atrophy & severe white matter disease TSH is 2.8 Echo shows EF of 65-70%/no structural abnormality troponin is negative hx of this is 10 years ago symptoms have completely resolved # chronic afib Eliquis & diltiazem reviewed teletypesetter monitor/ AFIB w controlled v rate # hypertension Stable # osteoarthritis, recent L total knee replacement had surgery last month w Dr Gee doing well with this #Plan: dc home Subjective: Taylor is feeling great/ no complaints. Objective: Vital Signs Temp Pulse Resp BP Pulse Ox 37.1 C 96 20 109/73 95 03/01/17 12:00 03/01/17 12:00 03/01/17 12:00 03/01/17 12:00 03/01/17 12:00 Laboratory Results 03/01/17 08:51 03/01/17 08:51 02/28/17 03/01/17 03/02/17 05:59 05:59 05:59 Intake Total 100 500 Output Total 150 Balance 100 350 - Physical Exam Constitutional: no apparent distress, appears nourished, not in pain Eyes: PERRL, other (no nystagmus) Ears, Nose, Mouth, Throat: hearing normal Cardiovascular: irregularly irregular Respiratory: no respiratory distress Gastrointestinal: normoactive bowel sounds Skin: warm Musculoskeletal: no muscle tenderness Neurologic: AAOx3 Psychiatric: interacting appropriately, not anxious, not encephalopathic ICD10 Worksheet Patient Problems: Problems Problem Status Onset Benign positional vertigo Acute Afib Acute CAD (coronary artery disease) Acute CHF (congestive heart failure) Acute Chronic Disease Mgmt/Transitional Care Acute
--- NOTE | 2017-03-01 15:54 | GDS ---
[f rep st] DISCHARGE SUMMARY DISCHARGE DIAGNOSES: 1. Vertigo, likely benign paroxysmal positional vertigo. 2. Chronic atrial fibrillation. 3. Hypertension. 4. Recent left knee replacement for osteoarthritis. Briefly, the patient is an 81-year-old female, who has a history of atrial fibrillation, hypertension, coronary artery disease. She presented to the emergency room with complaints of dizziness. She reports that she had one episode of vertigo, where the room was spinning, but this has since resolved. She also had an episode of vertigo approximately 11 years ago in which her symptoms were very similar. She was treated with fluids and meclizine. She improved significantly. A brain MRI was performed that showed nothing acute. She has atrophy and severe white matter T2 hyperintense lesions consistent with marked small-vessel ischemic vascular disease. It is negative for hemorrhage. An echocardiogram was performed, which showed an EF of 65% to 70%, left atrium is [id number] dilated. The right atrium is mildly dilated. She has a trivial anterior pericardial effusion. Troponin were checked, which were negative. TSH is stable. She is feeling markedly better today, she suspects that maybe she was also dehydrated. HOSPITAL COURSE: 1. Vertigo. Symptoms resolved 2. Chronic atrial fibrillation, on the teletypesetter monitor she is in atrial fibrillation with controlled ventricular rate. Eliquis and diltiazem have been resumed. 3. Hypertension. Blood pressure is stable. 4. Recent left total knee replacement due to osteoarthritis. She will follow up with Dr. Gee. PENDING LABS AND TESTS: None. CONDITION AT DISCHARGE: Stable. Blood pressure is 109/73, heart rate 96, respiratory rate is 20, O2 sat on room air 95%, temperature is 37.1 Celsius. MEDICATIONS AT DISCHARGE: Please see the EMR. DISCHARGE INSTRUCTIONS: 1. To get meclizine, to have available at home. 2. To stay well hydrated. 3. If she develops any vertiginous symptoms, and is unable to keep adequate intake in, to return to the ER. /[id number]/MODL MTDD
[2017-03-01] MEDS ORDERED: OLMESARTAN MEDOXOMIL 20 MG TAB PO SCH (21:00)
[2017-03-01] MEDS ORDERED: NON-FORMULARY NEW DRUG (Lansoprazole [Lansoprazole 15 Mg] 15 MG) PO SCH (21:00)
[2017-03-01] MEDS ORDERED: DOCUSATE SODIUM 100 MG CAP PO SCH (21:00)
[2017-03-01] MEDS ORDERED: PANTOPRAZOLE SODIUM 40 MG TAB PO SCH (21:00)
[2017-03-01] MEDS ORDERED: NON-FORMULARY NEW DRUG (Olmesartan Medoxomil [Benicar] 40 MG) PO SCH (21:00)
== END 2017-03-01 16:45 | disposition home or self-care (01) ==
LOC: F3E 20:23
PROVIDERS: ADMIT Internal Medicine; ATTEND Internal Medicine
DX: R42 Dizziness and giddiness (principal); I48.2 Chronic atrial fibrillation; I10 Essential (primary) hypertension; I25.10 Atherosclerotic heart disease of native coronary artery without angina pectoris; E78.5 Hyperlipidemia, unspecified; Z96.653 Presence of artificial knee joint, bilateral; Z96.643 Presence of artificial hip joint, bilateral; Z95.5 Presence of coronary angioplasty implant and graft; Z79.01 Long term (current) use of anticoagulants
CPT/HCPCS: 70551; 93005; 93306; 96374; 99285; G0378; J2060

== ENCOUNTER 2017-08-15 16:02 | Emergency (ER) | payer OTHER, MEDICARE ==
[2017-08-15 16:13] VITALS: BP 173/94; PULSE 97; RESP 18; TEMP 97.5; O2SAT 94
--- NOTE | 2017-08-15 16:56 | EDPHY ---
H & P Time Seen by Provider: 08/15/17 16:27 HPI/ROS: Chief complaint. Head injury HPI. 81-year-old female fell from standing position while going to the movies. Her cane got stuck in a hole and she fell backwards striking the back of her head. She did not lose consciousness. She scraped her right elbow. She was helped to her feet by bystanders. Patient is on Eliquis for atrial fibrillation. She has no neck pain, chest pain, shortness of breath, abdominal pain. Again no neck or back pain. No injury to legs. Good range of motion to the right arm where she has the abrasion ROS Constitutional. no fever/chills, no weakness Eyes. no problems with vision ENT. no sore throat, no nasal drainage; hematoma to back of head Cardiovascular. no chest pain Respiratory. no shortness of breath, no cough Abdominal. no abdominal pain, no nausea/vomiting, no diarrhea . no problems urinating MS. no calf pain/swelling, no neck/back pain, no joint pain Skin. no rash; abrasion right elbow Lymph. no swollen glands Neuro. no headache, no dizziness, no difficulty walking or with speech Past Medical/Surgical History: Past medical history is significant for coronary artery disease with stents, atrial fibrillation, hip replacement, knee replacement, hypertension, dyslipidemia Social History: Single nonsmoker no alcohol Smoking Status: Never smoked Physical Exam: General Appearance: Alert well-developed female mild distress vital signs are stable Eyes: Pupils equal and round no pallor or injection. ENT, no hemotympanum or Reddy sign. No oral pharyngeal trauma. Hematoma to the occiput Respiratory: There are no retractions, lungs are clear to auscultation. Cardiovascular: Regular rate and rhythm. Gastrointestinal: Abdomen is soft and nontender, no masses, bowel sounds normal. Neurological: Awake and alert, sensory and motor exams grossly normal. Skin: Abrasion right elbow Musculoskeletal: Neck is supple nontender. Extremities symmetrical, full range of motion. Psychiatric: Patient is oriented X 3, there is no agitation. Constitutional: Initial Vital Signs Temperature (C) 36.4 C 08/15/17 16:09 Heart Rate 97 08/15/17 16:09 Respiratory Rate 18 08/15/17 16:09 Blood Pressure 173/94 H 08/15/17 16:09 O2 Sat (%) 94 08/15/17 16:09 O2 Delivery Mode Room Air Allergies/Adverse Reactions: Penicillins Allergy (Mild, Verified 02/28/17 14:31) Hives amiodarone Allergy (Verified 02/28/17 14:31) flecainide Allergy (Verified 02/28/17 14:31) propafenone HCl [From Rythmol] Allergy (Verified 02/28/17 14:31) Home Medications: Medication Instructions Recorded Acetaminophen [Tylenol ES 500 mg 500 - 1,000 mg PO DAILY PRN 02/28/17 (*)] Apixaban [Eliquis] 5 mg PO BID 02/28/17 Calcium Carbonate/Vitamin D3 1 each PO DAILY 02/28/17 [CALCIUM 600 + VIT D TABLET] Cyanocobalamin [Vitamin B12 (*)] 1,000 mcg PO DAILY 02/28/17 Diltiazem HCl [Cartia Xt] 120 mg PO BID 02/28/17 Docusate Sodium [Colace 100 MG (*)] 100 mg PO HS 02/28/17 Lansoprazole [Lansoprazole 15 mg] 15 mg PO HS 02/28/17 Olmesartan Medoxomil [Benicar] 40 mg PO HS 02/28/17 Rosuvastatin Calcium [Crestor] 10 mg PO DAILY 02/28/17 Acetaminophen [Tylenol 325mg (*)] 650 mg PO Q4HRS PRN #0 tab 03/01/17 Meclizine HCl [Meclizine HCl 25 mg 25 mg PO BID PRN #20 tab 03/01/17 (RX,OTC)] Medical Decision Making - Diagnostics Imaging Results: Imaging Impressions Head CT 08/15/17 17:08 Impression: 1 right posterior parietal scalp hematoma without underlying fracture. 2. Normal brain. 3. Atherosclerotic disease Results called and discussed with VAUGHN SORENSEN, at 08/15/2017 17:31 General information for patients regarding this examination can be found at [email or web address]. If you have questions or comments about this report, please contact me at (hospital) or [phone] (cell). Head CT shows no evidence of skull fracture or intracranial bleeding. Posterior parietal scalp hematoma is identified ED Course/Re-evaluation: Re-evaluation patient is stable. She and I discussed imaging study results, treatment plan including criteria for return importance of follow-up and further evaluation. She expresses understanding and agreement Patient asked me to call her daughter María ([phone])--who did not answer. Message was left and I gave her my name in the ER telephone number for call back Differential Diagnosis: I considered skull fracture and intracranial bleeding is the patient is on Eliquis. Abrasion to right elbow but nothing to suggest fracture dislocation. - Data Points Medications Given: Discontinued Medications Acetaminophen (Tylenol) 650 mg PO EDNOW ONE Stop: 08/15/17 17:09 Last Admin: 08/15/17 17:49 Dose: 650 mg Departure - Departure Disposition: Home, Routine, Self-Care Clinical Impression: Head injury due to trauma Qualifiers: Encounter type: initial encounter Qualified Code(s): S09.90XA - Unspecified injury of head, initial encounter Condition: Good Instructions: Contusion in Adults (ED) Additional Instructions: Ice to sore area of head next 24-48 hours. Tylenol 650 to a 1000 mg every 6 hours for headache. Continue regular medications. Return for worsening headache, vomiting, confusion. Recheck in 2 days if not improving Referrals: Angeles Nichols MD [Primary Care Provider] - 2-3 days, if not improved
[2017-08-15] MEDS ORDERED: ACETAMINOPHEN 325 MG TAB PO ONE (17:08)
== END 2017-08-15 18:43 | disposition home or self-care (01) ==
DX: S09.90XA Unspecified injury of head, initial encounter (principal); I25.10 Atherosclerotic heart disease of native coronary artery without angina pectoris; I10 Essential (primary) hypertension; Z95.5 Presence of coronary angioplasty implant and graft; W01.198A Fall on same level from slipping, tripping and stumbling with subsequent striking against other object, initial encounter; Y99.8 Other external cause status; Y93.89 Activity, other specified

== ENCOUNTER → 2018-01-08 | Outpatient (CLI) | payer OTHER, MEDICARE | LOC: FIMAGING 14:39 | PROVIDERS: ATTEND Internal Medicine | DX: Z12.31 Encounter for screening mammogram for malignant neoplasm of breast (principal) ==

== ENCOUNTER → 2019-01-14 | Outpatient (CLI) | payer OTHER, MEDICARE | LOC: FIMAGING 12:58 | PROVIDERS: ATTEND Internal Medicine | DX: Z12.31 Encounter for screening mammogram for malignant neoplasm of breast (principal) ==